=== PATIENT | male | born 1965 | race Caucasian/White ===

== ENCOUNTER 2017-01-11 12:45 | Outpatient (CLI) | payer OTHER ==
--- NOTE | 2017-01-11 14:03 | Ultrasound Report ---
ULTRASOUND LEFT BASE OF MIDDLE FINGER: 01/11/2017 CLINICAL INDICATION: Dorsal nodule. TECHNIQUE: Real-time scanning was performed with community service representative static images obtained. FINDINGS: Ultrasound of the palpable abnormality identified by the patient was performed. At this s ite, there is a 1.0 x 0.6 x 0.5 cm cyst, arising from the third metacarpophalangeal joint. No sonogr aphically suspicious findings are appreciated. IMPRESSION: A 1 CM CYST ARISING FROM THE THIRD METACARPOPHALANGEAL JOINT. JOB #: [id number] EXT JOB #:
== END 2017-01-11 12:46 | disposition home or self-care (01) ==
LOC: DI 12:45
PROVIDERS: ATTEND Family Medicine
DX: M25.842 Other specified joint disorders, left hand (principal)
CPT/HCPCS: 76882

== ENCOUNTER 2017-08-04 16:12 | Outpatient (CLI) | payer OTHER ==
--- NOTE | 2017-08-04 18:12 | XRAY Report ---
CHEST X-RAY: 08/04/2017 HISTORY: Shortness of breath. COMPARISON: None. FINDINGS: Heart size is top normal. Lungs are clear. No pleural fluid or pneumothorax. Mild degenerative change in the spine. IMPRESSION: CLEAR LUNGS. NO ACUTE FINDINGS. TD: 08/04/2017 18:11
== END 2017-08-04 16:13 | disposition home or self-care (01) ==
LOC: DI 16:12
PROVIDERS: ATTEND Allergy & Immunology
DX: J45.20 Mild intermittent asthma, uncomplicated (principal)
CPT/HCPCS: 71046

== ENCOUNTER 2018-01-05 16:33 | Outpatient (CLI) | payer OTHER ==
--- NOTE | 2018-01-06 11:16 | Ultrasound Report ---
Reason: FULLNESS AND PAIN LEFT PECTORALIS,STRAIN OF MUSCL Procedure Date: 01/05/2018 Accession Number: [id number] / [id number] Procedure: US - Ext Limited Non Vascular CPT Code: FULL RESULT: EXAM: LEFT UPPER EXTREMITY ULTRASOUND - LIMITED EXAM DATE: 01/05/2018 05:17 PM. CLINICAL HISTORY: FULLNESS AND PAIN LEFT Pectoralis, strain OF MUSCLE. COMPARISON: None. TECHNIQUE: Real-time scanning was performed with static images obtained. FINDINGS: The left pectoralis and axillary region is scanned. No cystic or solid mass or abnormal fluid collection is seen. IMPRESSION: Negative left chest ultrasound. If symptoms persist consider CT or MRI. RADIA
== END 2018-01-05 16:34 | disposition home or self-care (01) ==
LOC: DI 16:33
PROVIDERS: ATTEND Family Medicine
DX: S29.011A Strain of muscle and tendon of front wall of thorax, initial encounter (principal)
CPT/HCPCS: 76882

== ENCOUNTER 2021-09-02 09:21 | Outpatient (CLI) | payer OTHER ==
--- NOTE | 2021-09-02 09:42 | XRAY Report ---
PROCEDURE: Chest 2 View X-Ray INDICATIONS: ACUTE COVID-19 TECHNIQUE: 2 view(s) of the chest. COMPARISON: August 04, 2017. FINDINGS: SUPPORT DEVICES: None. LUNGS/PLEURA: No focal consolidation, pleural effusion or space-occupying pneumothorax. MEDIASTINUM: The cardiomediastinal silhouette is within normal limits. BONES/SOFT TISSUES: No acute abnormality. IMPRESSION: 1.No acute cardiopulmonary abnormality. Reviewed by: Robel Moser MD on 09/02/2021 9:41 AM PDT Approved by: Robel Moser MD on 09/02/2021 9:41 AM PDT Station ID: [id number]
== END 2021-09-02 23:59 | disposition home or self-care (01) ==
LOC: DI.N 09:21
PROVIDERS: ATTEND Physician Assistant Medical
DX: U07.1 COVID-19 (principal); J45.909 Unspecified asthma, uncomplicated

== ENCOUNTER 2022-06-13 15:33 | Emergency (ER) | payer OTHER ==
[2022-06-13 15:57] VITALS: BP 171/97
[2022-06-13 16:02] LABS: BASOPHILS % (AUTO) 0.6 %; EOSINOPHILS # (AUTO) 0.1 10^3/uL (0.0-0.7); HCT - HEMATOCRIT 47.5 % (42.0-52.0); HGB - HEMOGLOBIN 15.7 g/dL (14.0-18.0); LYMPHOCYTES # (AUTO) 1.1 10^3/uL (1.5-3.5); MEAN CORPUSCULAR HEMOGLOBIN 28.6 pg (27.0-31.0); MEAN CORPUSCULAR HGB CONC 33.1 g/dL (32.0-36.0); MEAN CORPUSCULAR VOLUME 86.7 fL (80.0-94.0); MEAN PLATELET VOLUME 8.4 fL (7.4-11.4); MONOCYTES # (AUTO) 0.5 10^3/uL (0.0-1.0); MONOCYTES % (AUTO) 6.5 %; NEUTROPHILS # (AUTO) 5.4 10^3/uL (1.5-6.6); NEUTROPHILS % (AUTO) 76.3 %; PLT - PLATELET COUNT 254 10^3/uL (130-450); RED BLOOD COUNT 5.48 10^6/uL (4.70-6.10); RED CELL DISTRIBUTION WIDTH 12.4 % (12.0-15.0); WHITE BLOOD COUNT 7.1 x10^3/uL (4.8-10.8)
[2022-06-13 16:13] LABS: ALBUMIN 4.2 g/dL (3.2-5.5); ALBUMIN/GLOBULIN RATIO 1.4 (1.0-2.2); BILIRUBIN,TOTAL 0.7 mg/dL (0.2-1.0); CALCIUM 9.5 mg/dL (8.5-10.3); TOTAL PROTEIN 7.1 g/dL (6.7-8.2)
--- NOTE | 2022-06-13 16:22 | XRAY Report ---
PROCEDURE: Chest 1 View X-Ray INDICATIONS: Chest Pain TECHNIQUE: One view of the chest was acquired. COMPARISON: 09/02/2021 FINDINGS: Surgical changes and devices: None. Lungs and pleura: No pleural effusions or pneumothorax. Lungs are clear. Mediastinum: Mediastinal contours appear normal. Heart size is normal. Bones and chest wall: No suspicious bony lesions. Overlying soft tissues appear unremarkable. IMPRESSION: Portable chest within normal limits for age. Reviewed by: Sae Hager MD on 06/13/2022 3:21 PM [facility] Approved by: Sae Hager MD on 06/13/2022 3:21 PM [facility] Station ID: [id number]
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
== END 2022-06-13 17:08 | disposition home or self-care (01) ==
LOC: ED 15:33
DX: R03.0 Elevated blood-pressure reading, without diagnosis of hypertension (principal); I49.9 Cardiac arrhythmia, unspecified
CPT/HCPCS: 36415; 80053; 83690; 84484; 85025; 93005; 99284

== ENCOUNTER 2023-11-22 08:00 | Outpatient (CLI) | payer OTHER | END 2023-11-22 23:59 | disposition home or self-care (01) | LOC: LAB.N 08:00 | PROVIDERS: ATTEND Physician Assistant Medical | DX: M27.2 Inflammatory conditions of jaws (principal) | CPT/HCPCS: 87070; 87205 ==